=== PATIENT | female | born 1975 | race Caucasian/White ===

== ENCOUNTER 2016-12-17 00:26 | Inpatient (IN) ==
[2016-12-17] MEDS ORDERED: PEPCID PO PRN (00:39)
[2016-12-17] MEDS ORDERED: KEFZOL 1 GM/D5W 1 GM/50 ML IVPB IV PRN (00:39)
[2016-12-17] MEDS ORDERED: REGLAN PO ONE (00:39)
[2016-12-17] MEDS ORDERED: BRETHINE SUBQ PRN (00:39)
[2016-12-17] MEDS ORDERED: PEPCID PO ONE (00:39)
[2016-12-17] MEDS ORDERED: STADOL IV PRN ×3 (00:39)
[2016-12-17] MEDS ORDERED: PEPCID IV PRN (00:39)
[2016-12-17] MEDS ORDERED: AMBIEN PO PRN ×3 (00:39→17:31)
[2016-12-17] MEDS ORDERED: ZOFRAN IV PRN (00:39)
[2016-12-17] MEDS ORDERED: TYLENOL PO PRN (00:39)
[2016-12-17] MEDS: LR 1,000 ML IV ONE ×3 (01:30→11:10)
[2016-12-17 02:26] LABS: MANUAL DIFF NEEDED? NO
[2016-12-17 02:30] LABS: BASO% 0.3 % (0.0-0.8); EOS% 1.5 % (0.0-10.0); HEMATOCRIT 34.9 % (37.0-47.0); HEMOGLOBIN 11.3 g/dL (12.0-16.0); IMM GRAN# 0.01 X1000 (0.0-0.04); IMM GRAN% 0.2 % (0.0-0.5); LYMPH% 27.1 % (20.5-51.1); MCH 27.7 PG (27-31); MCHC 32.4 g/dL (33-37); MCV 85.5 FL (81-99); MONO# 0.53 X1000 (0.11-0.59); MPV 12.1 FL (7.4-10.4); NEUT% 62.9 % (42.2-75.2); PLT 123 X1000 (130-400); RBC 4.08 XMIL (4.2-5.4)
[2016-12-17] MEDS ORDERED: CYTOTEC PO ONE (03:00)
[2016-12-17] MEDS ORDERED: PITOCIN 30 UNITS/LR 30 UNITS/500 ML IV.SOLN IV SCH (07:00)
[2016-12-17] MEDS ORDERED: FENTANYL-BUPIV-NS 2 MCG-0.1% 200 ML EPIDURAL PRN (07:36)
[2016-12-17] MEDS ORDERED: MARCAINE 0.25% PF INJ ONE (07:45)
[2016-12-17] MEDS ORDERED: EPHEDRINE ONE (09:57)
[2016-12-17] MEDS ORDERED: LR 1,000 ML IV SCH (12:00)
[2016-12-17] MEDS ORDERED: MINERAL OIL ONE (14:17)
[2016-12-17] MEDS ORDERED: XYLOCAINE-MPF 1% ONE (14:17)
[2016-12-17] MEDS ORDERED: NORCO-10 PO PRN (16:02)
[2016-12-17] MEDS ORDERED: XYLOCAINE-MPF 1% INJ PRN ×2 (16:02→17:31)
[2016-12-17] MEDS ORDERED: HYDROXYZINE PO PRN ×2 (16:02→17:31)
[2016-12-17] MEDS ORDERED: HYDROXYZINE IM PRN ×2 (16:02→17:31)
[2016-12-17] MEDS ORDERED: PITOCIN 30 UNITS/LR 30 UNITS/500 ML IV.SOLN IV ONE ×2 (16:02→17:31)
[2016-12-17] MEDS ORDERED: BENADRYL IV PRN ×2 (16:02→17:31)
[2016-12-17] MEDS ORDERED: PERCOCET-10 PO PRN (16:02)
[2016-12-17] MEDS ORDERED: CYTOTEC PO PRN ×2 (16:02→17:31)
[2016-12-17] MEDS ORDERED: BOOSTRIX VACCINE IM ONE (16:02)
[2016-12-17] MEDS ORDERED: PITOCIN IM PRN ×2 (16:02→17:31)
[2016-12-17] MEDS ORDERED: PERI MEDS (DERMOPLAST/NUPERCAINAL/TUCKS) MISC PRN ×2 (16:02→17:31)
[2016-12-17] MEDS ORDERED: PERCOCET-5 PO PRN (16:02)
[2016-12-17] MEDS ORDERED: MINERAL OIL PO PRN ×2 (16:02→17:31)
[2016-12-17] MEDS ORDERED: PITOCIN 20 UNITS/LR 20 UNITS/1,000 ML IV.SOLN IV SCH ×2 (16:02→17:31)
[2016-12-17] MEDS ORDERED: BENADRYL PO PRN ×2 (16:02→17:31)
[2016-12-17] MEDS ORDERED: M-M-R II VACCINE SUBQ ONE (16:02)
[2016-12-17] MEDS ORDERED: MOTRIN PO PRN (16:02)
[2016-12-17] MEDS ORDERED: NORCO-5 PO PRN (16:02)
[2016-12-17] MEDS ORDERED: PITOCIN 20 UNITS/LR 20 UNITS/1,000 ML IV.SOLN ONE (17:08)
[2016-12-17] MEDS: MOTRIN PO PRN (19:21)
--- NOTE | 2016-12-17 19:59 | OPERATIVE NOTE ---
PROCEDURE DATE: 12/17/2016 DELIVERING PHYSICIAN: Dirk Castillo MD TYPE OF DELIVERY: Vaginal delivery without the forceps. ANESTHESIA: Epidural. FINDINGS: At 15:35, a 7 pound male was delivered in occiput anterior presentation with outlet forceps. There was a nuchal cord x1. Apgars were 9 at 1 minute and 10 at 5 minute. SUMMARY: Cecily Ang is a 41-year-old primigravida at term gestation. Her blood type is A positive. Rubella immune. Hepatitis B surface antigen, HIV, and group B strep were all negative. Her has been without complications. She was admitted early this morning for induction of labor. She received a single dose of Cytotec and then received IV Pitocin this morning. Membranes ruptured, and the epidural was placed. She was 3 cm dilated. She progressed to labor without signs of stress or dystocia. She became complete and began pushing with pushing and deep variable decelerations with slower and slower return to baseline. The decision was made to proceed with outlet delivery. She was placed in dorsal lithotomy position. Perineum prepped draped in usual fashion. The vacuum forceps was applied then we were able to bring the baby down to the perineum. We could not bring the baby any further with the vacuum forceps. The vacuum forceps were removed and Mino Cordelia forceps were applied with the head on the perineum, with the patient pushing and gentle traction. The was delivered. Nuchal cord was reduced. The shoulders and body delivered without complications. Cord was clamped and cut and the was handed to the nurses for further care and evaluation. The patient was requesting cord blood banking that was performed sterilely. We then gathered cord blood. Placenta was spontaneously delivered. It was intact. There was third degree small episiotomy that was repaired in layers using 2-0 Vicryl suture. BLOOD LOSS: Was approximately 300 mL. COMPLICATIONS: There were no complications. The patient remained in the LDR recovering without difficulty. cc: MD Jackson Beckman MD
[2016-12-17] MEDS ORDERED: PERICOLACE PO SCH (21:00)
[2016-12-18] MEDS: MOTRIN PO PRN ×3 (04:29→17:28)
[2016-12-18] MEDS: NORCO-10 PO PRN ×4 (04:50→23:01)
[2016-12-18 06:51] LABS: HEMATOCRIT 33.8 % (37.0-47.0); HEMOGLOBIN 10.7 g/dL (12.0-16.0); MCH 27.5 PG (27-31); MCHC 31.7 g/dL (33-37); MCV 86.9 FL (81-99); MPV 12.2 FL (7.4-10.4); RBC 3.89 XMIL (4.2-5.4)
[2016-12-18] MEDS ORDERED: HEMOCYTE PLUS CAPSULE PO SCH (09:00)
[2016-12-18] MEDS ORDERED: PRECARE PO SCH (09:00)
[2016-12-18] MEDS: ZOLOFT PO SCH (20:37)
[2016-12-18] MEDS ORDERED: PERICOLACE PO SCH (21:00)
[2016-12-19] MEDS: MOTRIN PO PRN (05:28)
[2016-12-19] MEDS ORDERED: PNEUMOVAX 23 IM ONE (08:00)
[2016-12-19 08:03] VITALS: BP 121/60
[2016-12-19] MEDS: ZOLOFT PO SCH (09:48)
[2016-12-19] MEDS: NORCO-10 PO PRN (09:49)
== END 2016-12-19 10:40 | disposition home or self-care (01) ==
LOC: P.LD 00:26
PROVIDERS: ADMIT Obstetrics & Gynecology; ATTEND Obstetrics & Gynecology